=== PATIENT | female | born 1960 | race African-American/Black ===

== ENCOUNTER 2019-01-01 16:42 | Inpatient (IN) | payer OTHER ==
[2019-01-01 19:23] VITALS: BMI 22.4
--- NOTE | 2019-01-01 21:00 | HP ---
CIWA Score - Admission Criteria [facility]ASAS Guidelines: Admission for Medically Managed Detox: Requires at least one of the followin. CIWA greater than 12 2. Seizures within the past 24 hours 3. Delirium tremens within the past 24 hours 4. Hallucinations within the past 24 hours 5. Acute intervention needed for co occurring medical disorder 6. Acute intervention needed for co occurring psychiatric disorder 7. Severe withdrawal that cannot be handled at a lower level of care (continued vomiting, continued diarrhea, abnormal vital signs) requiring intravenous medication and/or fluids 8. Admitting History and Physical - Past Medical History ...LMP: 03/20/02 - Smoking History Smoking history: Never smoked Have you smoked in the past 12 months: No - Alcohol/Substance Use Hx Alcohol Use: Yes Admission ROS [facility] - [facility] Chief Complaint: seeking rehab for alcohol dependence Allergies/Adverse Reactions: Allergies Allergy/AdvReac Type Severity Reaction Status Date / Time aspirin Allergy Verified 03/09/16 17:04 carrot Allergy Verified 03/09/16 17:26 egg Allergy Verified 03/09/16 17:26 lamivudine [From Epivir] Allergy Verified 03/09/16 17:26 Penicillins Allergy Verified 03/09/16 17:04 raltegravir potassium Allergy Verified 03/09/16 17:26 [From Isentress] ritonavir [From Norvir] Allergy Verified 03/09/16 17:04 History of Present Illness: 58 y.o. female with alcoholism and crack/cocaine, cannbis dependence here for rehab. client is referred by [facility] after presenting there 3 days ago for SI which client denies such thoughts. 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 She was observed for several hours and dc. client reports daily alcohol intake but has not had any alcohol intake in 4 days. Denies withdrawal sx's, seizures. + hx/o blackouts. reports longest clean time 15 years. denies any significant clean time in the past year. lives alone, unemployed, denies legals. Client is a poor historian. selective on what health hx she wants to share Exam Limitations: No Limitations - Ebola screening Have you traveled outside of the country in the last 21 days: No (N) Have you had contact with anyone from an Ebola affected area: No Do you have a fever: No - Review of Systems Constitutional: Malaise (chronic) EENT: reports: Blurred Vision (glasses) Respiratory: reports: No Symptoms reported Cardiac: reports: No Symptoms Reported GI: reports: No Symptoms Reported : reports: No Symptoms Reported Musculoskeletal: reports: Back Pain, Joint Pain, Neck Pain Integumentary: reports: No Symptoms Reported Neuro: reports: Other (black outs) Endocrine: reports: No Symptoms Reported Hematology: reports: No Symptoms Reported Psychiatric: reports: Agitated (irritable wants to sleep took seroquel), Depressed (denies si/hi) Other Systems: Reviewed and Negative Patient History - Patient Medical History Hx Anemia: No Hx Asthma: Yes Hx Chronic Obstructive Pulmonary Disease (COPD): No Hx Cancer: Yes (hx-OVARIAN "I DO NOT TALK ABOUT" now "bone ca") Hx Cardiac Disorders: No Hx Congestive Heart Failure: No Hx Hypertension: No Hx Hypercholesterolemia: No Hx Pacemaker: No HX Cerebrovascular Accident: No Hx Seizures: No Hx Dementia: No Hx Diabetes: No Hx Gastrointestinal Disorders: No Hx Liver Disease: No Hx Genitourinary Disorders: No Hx Sexually Transmitted Disorders: No Hx Renal Disease (ESRD): No Hx Thyroid Disease: No Hx Human Immunodeficiency Virus (HIV): Yes (1982) Hx Hepatitis C: No Hx Depression: Yes Hx Suicide Attempt: Yes (20 YEARS AGO "I DO NOT WANT TO TALK ABOUT") Hx Bipolar Disorder: Yes Hx Schizophrenia: Yes Other Medical History: anger manic - Patient Surgical History Past Surgical History: Yes Hx Neurologic Surgery: No Hx Cataract Extraction: No Hx Cardiac Surgery: No Hx Lung Surgery: No Hx Breast Surgery: No Hx Breast Biopsy: No Hx Abdominal Surgery: No Hx Appendectomy: No Hx Cholecystectomy: No Hx Genitourinary Surgery: No Hx Orthopedic Surgery: No Hx Hysterectomy: Yes (2003) Anesthesia Reaction: No - PPD History Previous Implant?: Yes Documented Results: Negative w/o proof Implanted On Prior R Admission?: No PPD to be Administered?: Yes - Reproductive History Patient is a Female of Child Bearing Age (11 -55 yrs old): Yes Last Menstrual Period: 03/20/03 Patient : No - Smoking Cessation Smoking history: Never smoked Have you smoked in the past 12 months: No Hx Chewing Tobacco Use: No Initiated information on smoking cessation: No - Substance & Tx. History Hx Alcohol Use: Yes Hx Substance Use: Yes Substance Use Type: Alcohol, Cocaine, Marijuana Hx Substance Use Treatment: No - Substances abused Alcohol Substance route: Oral Frequency: Daily Amount used: 3 to 4 bottles of water. Age of first use: 7 Date of last use: 12/27/18 Crack Substance route: Inhalation Frequency: 1-3 times last 30 days Amount used: ' 3 to 4 hundred dollars. Age of first use: 25 Date of last use: 12/29/18 Marijuana/Hashish Substance route: Smoking Frequency: 1-3 times last 30 days Amount used: 3 blunts Age of first use: 7 Date of last use: 12/30/18 Admission Physical Exam [facility] - Vital Signs Vital Signs: Vital Signs - 24 hr 01/01/19 18:41 Temperature 97.2 F L Pulse Rate 70 Respiratory 16 Rate Blood Pressure 132/75 - Physical General Appearance: Yes: Irritable (patient wants to sleep took seroquel) HEENTM: Yes: EOMI, Normocephalic, Normal Voice, KRISTIN, Pharynx Normal, Other ( poor dentition) Respiratory: Yes: Chest Non-Tender, Lungs Clear, Normal Breath Sounds, No Respiratory Distress, No Accessory Muscle Use Neck: Yes: No masses,lesions,Nodules, Supple, Trachea in good position Breast: Yes: Breast Exam Deferred Cardiology: Yes: Regular Rhythm, Regular Rate, S1, S2 Abdominal: Yes: Non Tender, Soft, Surgical Scar (pt does not want to discuss type of sx) Genitourinary: Yes: Within Normal Limits Back: Yes: Normal Inspection Musculoskeletal: Yes: full range of Motion, Joint Stiffness Extremities: Yes: Other (limited rom 2/2 to complaints of pain) Neurological: Yes: Fully Oriented, Alert, Motor Strength 5/5 Integumentary: Yes: Dry, Warm Lymphatic: Yes: Within Normal Limits - Diagnostic (1) Alcohol dependence, uncomplicated Current Visit: Yes Status: Chronic (2) Cocaine dependence, uncomplicated Current Visit: Yes Status: Chronic (3) Cannabis dependence, uncomplicated Current Visit: Yes Status: Chronic (4) Asthma Current Visit: Yes Status: Chronic Qualifiers: Asthma severity: mild intermittent Asthma complication type: with status asthmaticus Comment: COMBIVENT BID (5) HIV (human immunodeficiency virus infection) Current Visit: Yes Status: Chronic (6) Neuropathy Current Visit: Yes Status: Chronic (7) Uncooperative behavior Current Visit: Yes Status: Acute Cleared for Admission [facility] - Detox or Rehab Detox Regimen/Protocol: Not Applicable Claeared for Rehab Admission: No Urine Drug Screen - Test Device Lot number: [id number] Expiration date: 09/17/20 - Control Is test valid?: Yes - Results Drug screen NEGATIVE: No Urine drug screen results: THC-Marijuana, MIGUEL-Cocaine Inpatient Rehab Admission - Rehab Decision to Admit Inpatient rehab admission?: Yes - Initial Determination Are CD services needed?: Yes Free of communicable disease: No Not in need of hospitalization: Yes - Rehab Admission Criteria Previous failed treatment: Yes Poor recovery environment: Yes Comorbidities: Yes Lacks judgement: No Patient is meeting Inpatient Rehab admission criteria:: Yes
[2019-01-01] MEDS ORDERED: guaiFENesin 200 MG/10 ML 10 ML UNIT-DOSE CUPS PO PRN (21:07)
[2019-01-01] MEDS ORDERED: LOPERAMIDE HCL 2 MG CAPSULE PO PRN (21:07)
[2019-01-01] MEDS ORDERED: MAG HYDROX/AL HYDROX/SIMETH 30 ML UNIT-DOSE CUP PO PRN (21:07)
[2019-01-01] MEDS ORDERED: MENTHOL/PHENOL 1 EACH UD MM PRN (21:07)
[2019-01-01] MEDS ORDERED: MAGNESIUM HYDROX 2400MG/30ML ORAL SUSPENSION 30 ML CUP PO PRN (21:07)
[2019-01-01] MEDS ORDERED: P-EPHED 60MG/TRIPROLIDI 2.5MG TABLET PO PRN (21:07)
[2019-01-01] MEDS ORDERED: MELATONIN 5 MG TABLETS PO PRN (22:00)
[2019-01-01] MEDS ORDERED: TUBERCULIN PPD 5 TU/0.1ML VIAL ID ONE ×2 (22:25→23:09)
[2019-01-01] MEDS: metroNIDAZOLE 250 MG TABLET PO SCH (23:01)
[2019-01-01] MEDS: metroNIDAZOLE 0.75% VAGINAL GEL 70 GM TUBE VG SCH (23:02)
[2019-01-01] MEDS: THIAMINE HCL 100 MG TABLET (FP) PO SCH (23:02)
[2019-01-01] MEDS: valACYclovir HCL 500 MG TABLET (FP) PO SCH (23:02)
[2019-01-02] MEDS ORDERED: TUBERCULIN PPD 5 TU/0.1ML VIAL ID ONE (07:03)
[2019-01-02] MEDS: ACETAMINOPHEN 325 MG TABLET (FP) PO PRN (07:04)
[2019-01-02] MEDS ORDERED: PT OWN MED DRAWER 7, Y5N ONE ×2 (08:36→23:06)
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
[2019-01-02] MEDS ORDERED: DOLUTEGRAVIR SODIUM 50 MG TABLET (NON-FORMULARY) PO SCH (10:00)
[2019-01-02] MEDS ORDERED: DARUNAVIR 800 MG/COBICISTAT 150MG TABLET PO SCH (10:00)
[2019-01-02 10:30] LABS: ALBUMIN 3.1 g/dl (3.4-5.0); BILIRUBIN,TOTAL 0.2 mg/dL (0.2-1); BLOOD UREA NITROGEN 18.7 mg/dL (7-18); CALCIUM 8.9 mg/dL (8.5-10.1); CREATININE 1.1 mg/dL (0.55-1.3); POTASSIUM 4.1 mmol/L (3.5-5.1); TOT PROT 7.5 g/dl (6.4-8.2)
[2019-01-02 10:38] LABS: HEMATOCRIT 36.2 % (32.4-45.2); HEMOGLOBIN 12.2 GM/dL (10.7-15.3); MCH 30.6 pg (25.7-33.7); MCHC 33.8 g/dl (32.0-36.0); MEAN CELL VOLUME 90.5 fl (80-96); MEAN PLT VOLUME 7.4 fl (7.5-11.1); PLATELET COUNT 180 K/MM3 (134-434); RDW 13.9 % (11.6-15.6); WHITE BLOOD COUNT 4.1 K/mm3 (4.0-10.0)
[2019-01-02] MEDS: PRENATAL VITAMINS W/ FOLIC ACID TABLET (FP) PO SCH (10:46)
[2019-01-02] MEDS: metroNIDAZOLE 250 MG TABLET PO SCH (10:46)
--- NOTE | 2019-01-02 13:20 | EKG ---
Test Reason : Blood Pressure : / mmHG Vent. Rate : 077 BPM Atrial Rate : 077 BPM P-R Int : 136 ms QRS Dur : 074 ms QT Int : 394 ms P-R-T Axes : 068 054 058 degrees QTc Int : 445 ms NORMAL SINUS RHYTHM NORMAL ECG NO PREVIOUS ECGS AVAILABLE Confirmed by JULIEN MEHTA MD ([id number]) on 01/02/2019 1:19:56 PM Referred By: DR LAMBERT Confirmed By:JULIEN MEHTA MD
--- NOTE | 2019-01-02 13:42 | PN ---
[facility] Progress Note Note: Notified by RN, Juan Peyton, that patient became agitated after meeting with counselor and stated to RN that she wanted to "cut her wrists". Sales And Production Manager evaluated patient, and she stated " the counselor came to see my and asked me to sign discharge treatment plan. I became upset because I have a lot going on and I am depressed. I made that comment because I was frustrated but I don't want to hurt myself". Patient was evaluated 3 days ago to [facility] for SI and depression. Has hx of ETOH/Crack/Cocaine/Cannabis dependence. Laboratory Tests 01/01/19 01/02/19 01/02/19 20:25 07:00 07:00 WBC 4.1 RBC 4.00 Hgb 12.2 Hct 36.2 MCV 90.5 MCH 30.6 MCHC 33.8 RDW 13.9 Plt Count 180 MPV 7.4 L Sodium 140 Potassium 4.1 Chloride 108 H Carbon Dioxide 27 Anion Gap 5 L BUN 18.7 H Creatinine 1.1 Est GFR (CKD-EPI)AfAm 63.64 Est GFR (CKD-EPI)NonAf 54.91 Random Glucose 103 Calcium 8.9 Total Bilirubin 0.2 AST 23 ALT 14 Alkaline Phosphatase 109 Total Protein 7.5 Albumin 3.1 L POC Urine HCG, Qual Negative RPR Titer 01/02/19 07:00 WBC RBC Hgb Hct MCV MCH MCHC RDW Plt Count MPV Sodium Potassium Chloride Carbon Dioxide Anion Gap BUN Creatinine Est GFR (CKD-EPI)AfAm Est GFR (CKD-EPI)NonAf Random Glucose Calcium Total Bilirubin AST ALT Alkaline Phosphatase Total Protein Albumin POC Urine HCG, Qual RPR Titer Nonreactive Vital Signs Temperature 97.9 F 01/02/19 07:21 Pulse Rate 72 01/02/19 07:21 Respiratory Rate 18 01/02/19 07:21 Blood Pressure 115/73 01/02/19 07:21 O2 Sat by Pulse Oximetry (%) PE: alert and oriented x 3 skin warm and dry +perrla eoms intact bl ext no tremors, amb ad yadira psych sad, denies SI/HI A/P: Hx of depression ETOH/Cocaine/THC dependence Patient denies SI/HI/plan, however, she has depressed affect. Although, evaluated by Roxy Rashid, butcher helper this morning, will reconsult Psychiatry.
[2019-01-02] MEDS: GABAPENTIN 400 MG CAPSULE (FP) PO SCH (17:34)
[2019-01-02] MEDS: DARUNAVIR 800 MG/COBICISTAT 150MG TABLET PO SCH (17:37)
[2019-01-02] MEDS: DOLUTEGRAVIR SODIUM 50 MG TABLET (NON-FORMULARY) PO SCH (17:37)
[2019-01-02] MEDS ORDERED: CARIPRAZINE HCL 1.5 MG PO SCH (22:00)
[2019-01-02] MEDS ORDERED: QUEtiapine FUMARATE 300 MG TABLET PO SCH (22:00)
[2019-01-02] MEDS: valACYclovir HCL 500 MG TABLET (FP) PO SCH (22:02)
[2019-01-02] MEDS: THIAMINE HCL 100 MG TABLET (FP) PO SCH (22:02)
[2019-01-02] MEDS: metroNIDAZOLE 0.75% VAGINAL GEL 70 GM TUBE VG SCH (22:02)
[2019-01-03] MEDS ORDERED: PT OWN MED DRAWER 7, Y5N ONE ×3 (06:55→18:08)
[2019-01-03] MEDS: PRENATAL VITAMINS W/ FOLIC ACID TABLET (FP) PO SCH (10:19)
--- NOTE | 2019-01-03 15:20 | DS ---
[facility] Rehab Discharge Summary - [facility] Rehab Discharge Summary Admission Date: 01/01/19 Discharge Date: 01/03/19 - History Pertinent Past History: Laboratory Last Values WBC 4.1 K/mm3 (4.0-10.0) 01/02/19 07:00 RBC 4.00 M/mm3 (3.60-5.2) 01/02/19 07:00 Hgb 12.2 GM/dL (10.7-15.3) 01/02/19 07:00 Hct 36.2 % (32.4-45.2) 01/02/19 07:00 MCV 90.5 fl (80-96) 01/02/19 07:00 MCH 30.6 pg (25.7-33.7) 01/02/19 07:00 MCHC 33.8 g/dl (32.0-36.0) 01/02/19 07:00 RDW 13.9 % (11.6-15.6) 01/02/19 07:00 Plt Count 180 K/MM3 (134-434) 01/02/19 07:00 MPV 7.4 fl (7.5-11.1) L 01/02/19 07:00 Sodium 140 mmol/L (136-145) 01/02/19 07:00 Potassium 4.1 mmol/L (3.5-5.1) 01/02/19 07:00 Chloride 108 mmol/L (98-107) H 01/02/19 07:00 Carbon Dioxide 27 mmol/L (21-32) 01/02/19 07:00 Anion Gap 5 MMOL/L (8-16) L 01/02/19 07:00 BUN 18.7 mg/dL (7-18) H 01/02/19 07:00 Creatinine 1.1 mg/dL (0.55-1.3) 01/02/19 07:00 Est GFR (CKD-EPI)AfAm 63.64 01/02/19 07:00 Est GFR (CKD-EPI)NonAf 54.91 01/02/19 07:00 Random Glucose 103 mg/dL (74-106) 01/02/19 07:00 Calcium 8.9 mg/dL (8.5-10.1) 01/02/19 07:00 Total Bilirubin 0.2 mg/dL (0.2-1) 01/02/19 07:00 AST 23 U/L (15-37) 01/02/19 07:00 ALT 14 U/L (13-61) 01/02/19 07:00 Alkaline Phosphatase 109 U/L (45-117) 01/02/19 07:00 Total Protein 7.5 g/dl (6.4-8.2) 01/02/19 07:00 Albumin 3.1 g/dl (3.4-5.0) L 01/02/19 07:00 POC Urine HCG, Qual Negative 01/01/19 20:25 RPR Titer Nonreactive (NONREACTIVE) 01/02/19 07:00 - Discharge Physical Exam Vital Signs: Vital Signs Temperature 97.1 F L 01/03/19 07:01 Pulse Rate 66 01/03/19 07:01 Respiratory Rate 18 01/03/19 07:01 Blood Pressure 157/85 01/03/19 07:01 O2 Sat by Pulse Oximetry (%) Pertinent Admission Physical Exam Findings: Laboratory Last Values WBC 4.1 K/mm3 (4.0-10.0) 01/02/19 07:00 RBC 4.00 M/mm3 (3.60-5.2) 01/02/19 07:00 Hgb 12.2 GM/dL (10.7-15.3) 01/02/19 07:00 Hct 36.2 % (32.4-45.2) 01/02/19 07:00 MCV 90.5 fl (80-96) 01/02/19 07:00 MCH 30.6 pg (25.7-33.7) 01/02/19 07:00 MCHC 33.8 g/dl (32.0-36.0) 01/02/19 07:00 RDW 13.9 % (11.6-15.6) 01/02/19 07:00 Plt Count 180 K/MM3 (134-434) 01/02/19 07:00 MPV 7.4 fl (7.5-11.1) L 01/02/19 07:00 Sodium 140 mmol/L (136-145) 01/02/19 07:00 Potassium 4.1 mmol/L (3.5-5.1) 01/02/19 07:00 Chloride 108 mmol/L (98-107) H 01/02/19 07:00 Carbon Dioxide 27 mmol/L (21-32) 01/02/19 07:00 Anion Gap 5 MMOL/L (8-16) L 01/02/19 07:00 BUN 18.7 mg/dL (7-18) H 01/02/19 07:00 Creatinine 1.1 mg/dL (0.55-1.3) 01/02/19 07:00 Est GFR (CKD-EPI)AfAm 63.64 01/02/19 07:00 Est GFR (CKD-EPI)NonAf 54.91 01/02/19 07:00 Random Glucose 103 mg/dL (74-106) 01/02/19 07:00 Calcium 8.9 mg/dL (8.5-10.1) 01/02/19 07:00 Total Bilirubin 0.2 mg/dL (0.2-1) 01/02/19 07:00 AST 23 U/L (15-37) 01/02/19 07:00 ALT 14 U/L (13-61) 01/02/19 07:00 Alkaline Phosphatase 109 U/L (45-117) 01/02/19 07:00 Total Protein 7.5 g/dl (6.4-8.2) 01/02/19 07:00 Albumin 3.1 g/dl (3.4-5.0) L 01/02/19 07:00 POC Urine HCG, Qual Negative 01/01/19 20:25 RPR Titer Nonreactive (NONREACTIVE) 01/02/19 07:00 - Medication Discharge Medications: Ambulatory Orders Dolutegravir Sodium [Tivicay] 50 mg PO DAILY 03/09/16 Albuterol Sulfate [Proair Hfa] 1 puff IN TID 01/01/19 Cariprazine HCl [Vraylar] 1.5 mg PO DAILY 01/01/19 Cariprazine HCl [Vraylar] 300 mg PO HS 01/01/19 Darunavir/Cobicistat [Prezcobix 800 mg-150 mg Tablet] 1 each PO DAILY 01/01/19 Emtricitabine/Tenofov Alafenam [Descovy 200-25 mg Tablet (Nf)] 1 tablet PO DAILY 01/01/19 Gabapentin 800 mg PO BID 01/01/19 Ondansetron [Zofran -] 4 mg PO DAILY 01/01/19 Quetiapine Fumarate [Seroquel] 300 mg PO DAILY 01/01/19 Valacyclovir HCl [Valtrex -] 1 tablet PO HS 01/01/19 metroNIDAZOLE 0.75% VAG. GEL [Metrogel 0.75% Vaginal Gel -] 1 applic VG HS 01/01 metroNIDAZOLE [Flagyl -] 500 mg PO BID 01/01/19 - Medication-Assisted Treatment (MAT) Medication-Assisted Treatment (MAT): No - Discharge Instructions Diet, activity, other medical instructions: Diet: Activity: Other medical instructions: - Diagnosis (1) Alcohol dependence, uncomplicated Current Visit: Yes Status: Chronic (2) Asthma Current Visit: Yes Status: Chronic Qualifiers: Asthma severity: mild intermittent Asthma complication type: with status asthmaticus (3) HIV (human immunodeficiency virus infection) Current Visit: Yes Status: Chronic (4) Hypertension Current Visit: No Status: Acute Qualifiers: Hypertension type: essential hypertension Qualified Code(s): I10 - Essential (primary) hypertension - AMA Did Patient Leave Against Medical Advice: No Additional Comments: Patient requested early discharge
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
[2019-01-03] MEDS: QUEtiapine FUMARATE 300 MG TABLET PO SCH (18:09)
[2019-01-03] MEDS: DARUNAVIR 800 MG/COBICISTAT 150MG TABLET PO SCH (18:09)
[2019-01-03] MEDS: DOLUTEGRAVIR SODIUM 50 MG TABLET (NON-FORMULARY) PO SCH (18:09)
[2019-01-03] MEDS: valACYclovir HCL 500 MG TABLET (FP) PO SCH (18:09)
[2019-01-03] MEDS: THIAMINE HCL 100 MG TABLET (FP) PO SCH (18:09)
[2019-01-03] MEDS: GABAPENTIN 400 MG CAPSULE (FP) PO SCH (18:10)
[2019-01-03] MEDS: metroNIDAZOLE 0.75% VAGINAL GEL 70 GM TUBE VG SCH (22:02)
[2019-01-04] MEDS: PRENATAL VITAMINS W/ FOLIC ACID TABLET (FP) PO SCH (09:48)
[2019-01-04] MEDS ORDERED: PT OWN MED DRAWER 7, Y5N ONE (17:37)
[2019-01-04] MEDS: MAGNESIUM CITRATE 300 ML BOTTLE PO PRN (17:46)
[2019-01-04] MEDS: MIRTAZAPINE 15 MG TABLET (FP) PO SCH (17:47)
[2019-01-04] MEDS: QUEtiapine FUMARATE 300 MG TABLET PO SCH (17:48)
[2019-01-04] MEDS: valACYclovir HCL 500 MG TABLET (FP) PO SCH (17:48)
[2019-01-04] MEDS: THIAMINE HCL 100 MG TABLET (FP) PO SCH (17:48)
[2019-01-04] MEDS: GABAPENTIN 400 MG CAPSULE (FP) PO SCH (17:48)
[2019-01-04] MEDS: DARUNAVIR 800 MG/COBICISTAT 150MG TABLET PO SCH (17:50)
[2019-01-04] MEDS: DOLUTEGRAVIR SODIUM 50 MG TABLET (NON-FORMULARY) PO SCH (17:50)
[2019-01-05] MEDS ORDERED: COLLOIDAL OATMEAL 1 BAR EACH TP PRN (08:44)
[2019-01-05] MEDS: PRENATAL VITAMINS W/ FOLIC ACID TABLET (FP) PO SCH (10:00)
[2019-01-05] MEDS: valACYclovir HCL 500 MG TABLET (FP) PO SCH (17:36)
[2019-01-05] MEDS: GABAPENTIN 400 MG CAPSULE (FP) PO SCH (17:36)
[2019-01-05] MEDS: MIRTAZAPINE 15 MG TABLET (FP) PO SCH (17:38)
[2019-01-05] MEDS: QUEtiapine FUMARATE 300 MG TABLET PO SCH (17:38)
[2019-01-05] MEDS: DARUNAVIR 800 MG/COBICISTAT 150MG TABLET PO SCH (17:38)
[2019-01-05] MEDS: DOLUTEGRAVIR SODIUM 50 MG TABLET (NON-FORMULARY) PO SCH (17:39)
[2019-01-05] MEDS: THIAMINE HCL 100 MG TABLET (FP) PO SCH (17:40)
--- NOTE | 2019-01-06 09:38 | PN ---
[facility] Progress Note (SOAP) Subjective: Pt c/o sorethroat and unable to eat. Reports body aches especially from knees to lower legs and neck area. Denies cough or runny nose. Reports Fatigue. Objective: 01/06/19 09:30 Vital Signs - 24 hr 01/06/19 01/06/19 00:30 03:30 Respiratory 18 18 Rate Laboratory Tests 01/01/19 01/02/19 01/02/19 20:25 07:00 07:00 WBC 4.1 RBC 4.00 Hgb 12.2 Hct 36.2 MCV 90.5 MCH 30.6 MCHC 33.8 RDW 13.9 Plt Count 180 MPV 7.4 L Sodium 140 Potassium 4.1 Chloride 108 H Carbon Dioxide 27 Anion Gap 5 L BUN 18.7 H Creatinine 1.1 Est GFR (CKD-EPI)AfAm 63.64 Est GFR (CKD-EPI)NonAf 54.91 Random Glucose 103 Calcium 8.9 Total Bilirubin 0.2 AST 23 ALT 14 Alkaline Phosphatase 109 Total Protein 7.5 Albumin 3.1 L POC Urine HCG, Qual Negative RPR Titer 01/02/19 07:00 WBC RBC Hgb Hct MCV MCH MCHC RDW Plt Count MPV Sodium Potassium Chloride Carbon Dioxide Anion Gap BUN Creatinine Est GFR (CKD-EPI)AfAm Est GFR (CKD-EPI)NonAf Random Glucose Calcium Total Bilirubin AST ALT Alkaline Phosphatase Total Protein Albumin POC Urine HCG, Qual RPR Titer Nonreactive P/E: Head:Normocephalic, Atruamatic. Neck:supple,no JVD,right side with one round grape-size bump painful to touch. Throat:slightly red, whitish coating on sides and base of tongue. cardiac:s1 s2,rrr lungs:cta,sujata. abdomen:soft,+bs,nt,nd extremities/skin:no edema,full ROM, skin intact. Assessment: 01/06/19 09:30 Throat pain swollen lymph node, right submandibular oral sree Plan: Cepastat throat lozenges Nystatin 500,000 units Q6h x 14 days Bactrim DS 1 tab po bid x 7 days
[2019-01-06] MEDS: PRENATAL VITAMINS W/ FOLIC ACID TABLET (FP) PO SCH (10:21)
[2019-01-06] MEDS ORDERED: SULFAMETHOXAZOLE/TRIMETHOPRIM 800MG/160MG D.S. TABLET PO ONE (11:28)
[2019-01-06] MEDS ORDERED: PT OWN MED DRAWER 7, Y5N ONE ×2 (12:19→16:41)
[2019-01-06] MEDS: NYSTATIN 500,000 UNITS/5 ML SUSPENSION PO SCH ×3 (12:22→23:47)
[2019-01-06] MEDS: valACYclovir HCL 500 MG TABLET (FP) PO SCH (19:13)
[2019-01-06] MEDS: GABAPENTIN 400 MG CAPSULE (FP) PO SCH (19:13)
[2019-01-06] MEDS: MIRTAZAPINE 15 MG TABLET (FP) PO SCH (19:15)
[2019-01-06] MEDS: QUEtiapine FUMARATE 300 MG TABLET PO SCH (19:15)
[2019-01-06] MEDS: DARUNAVIR 800 MG/COBICISTAT 150MG TABLET PO SCH (19:15)
[2019-01-06] MEDS: DOLUTEGRAVIR SODIUM 50 MG TABLET (NON-FORMULARY) PO SCH (19:16)
[2019-01-06] MEDS: THIAMINE HCL 100 MG TABLET (FP) PO SCH (19:16)
[2019-01-06] MEDS: SULFAMETHOXAZOLE/TRIMETHOPRIM 800MG/160MG D.S. TABLET PO SCH (21:58)
[2019-01-06 23:55] LABS: URINE APPEARANCE CLEAR; URINE BILIRUBIN NEGATIVE (NEGATIVE); URINE COLOR YELLOW; URINE GLUCOSE (UA) NEGATIVE (NEGATIVE); URINE KETONE NEGATIVE (NEGATIVE); URINE LEUK ESTERASE NEGATIVE (NEGATIVE); URINE NITRITE NEGATIVE (NEGATIVE); URINE PROTEIN NEGATIVE (NEGATIVE); URINE UROBILINOGEN 0.2 mg/dL (0.2-1.0)
[2019-01-07] MEDS: NYSTATIN 500,000 UNITS/5 ML SUSPENSION PO SCH ×3 (07:04→18:05)
[2019-01-07] MEDS: SULFAMETHOXAZOLE/TRIMETHOPRIM 800MG/160MG D.S. TABLET PO SCH ×2 (10:26→18:03)
[2019-01-07] MEDS: PRENATAL VITAMINS W/ FOLIC ACID TABLET (FP) PO SCH (10:26)
[2019-01-07] MEDS: ACETAMINOPHEN 325 MG TABLET (FP) PO PRN (10:26)
--- NOTE | 2019-01-07 12:56 | PN ---
[facility] Progress Note Note: Laboratory Tests 01/01/19 01/02/19 01/02/19 20:25 07:00 07:00 WBC 4.1 RBC 4.00 Hgb 12.2 Hct 36.2 MCV 90.5 MCH 30.6 MCHC 33.8 RDW 13.9 Plt Count 180 MPV 7.4 L Sodium 140 Potassium 4.1 Chloride 108 H Carbon Dioxide 27 Anion Gap 5 L BUN 18.7 H Creatinine 1.1 Est GFR (CKD-EPI)AfAm 63.64 Est GFR (CKD-EPI)NonAf 54.91 Random Glucose 103 Calcium 8.9 Total Bilirubin 0.2 AST 23 ALT 14 Alkaline Phosphatase 109 Total Protein 7.5 Albumin 3.1 L Urine Color Urine Appearance Urine pH Ur Specific [place] Urine Protein Urine Glucose (UA) Urine Ketones Urine Blood Urine Nitrite Urine Bilirubin Urine Urobilinogen Ur Leukocyte Esterase POC Urine HCG, Qual Negative RPR Titer 01/02/19 01/06/19 07:00 21:16 WBC RBC Hgb Hct MCV MCH MCHC RDW Plt Count MPV Sodium Potassium Chloride Carbon Dioxide Anion Gap BUN Creatinine Est GFR (CKD-EPI)AfAm Est GFR (CKD-EPI)NonAf Random Glucose Calcium Total Bilirubin AST ALT Alkaline Phosphatase Total Protein Albumin Urine Color Yellow Urine Appearance Clear Urine pH 6.0 Ur Specific [place] 1.026 Urine Protein Negative Urine Glucose (UA) Negative Urine Ketones Negative Urine Blood Negative Urine Nitrite Negative Urine Bilirubin Negative Urine Urobilinogen 0.2 Ur Leukocyte Esterase Negative POC Urine HCG, Qual RPR Titer Nonreactive UA noted WNL
[2019-01-07] MEDS ORDERED: PT OWN MED DRAWER 7, Y5N ONE (18:02)
[2019-01-07] MEDS: valACYclovir HCL 500 MG TABLET (FP) PO SCH (18:02)
[2019-01-07] MEDS: GABAPENTIN 400 MG CAPSULE (FP) PO SCH (18:02)
[2019-01-07] MEDS: THIAMINE HCL 100 MG TABLET (FP) PO SCH (18:03)
[2019-01-07] MEDS: QUEtiapine FUMARATE 300 MG TABLET PO SCH (18:04)
[2019-01-07] MEDS: DOLUTEGRAVIR SODIUM 50 MG TABLET (NON-FORMULARY) PO SCH (18:04)
[2019-01-07] MEDS: MIRTAZAPINE 15 MG TABLET (FP) PO SCH (18:04)
[2019-01-07] MEDS: DARUNAVIR 800 MG/COBICISTAT 150MG TABLET PO SCH (18:05)
[2019-01-08] MEDS: NYSTATIN 500,000 UNITS/5 ML SUSPENSION PO SCH ×5 (01:01→23:05)
[2019-01-08] MEDS: SULFAMETHOXAZOLE/TRIMETHOPRIM 800MG/160MG D.S. TABLET PO SCH ×2 (06:58→18:01)
[2019-01-08] MEDS: PRENATAL VITAMINS W/ FOLIC ACID TABLET (FP) PO SCH (09:56)
[2019-01-08] MEDS ORDERED: PT OWN MED DRAWER 7, Y5N ONE (17:50)
[2019-01-08] MEDS: GABAPENTIN 400 MG CAPSULE (FP) PO SCH (17:58)
[2019-01-08] MEDS: DARUNAVIR 800 MG/COBICISTAT 150MG TABLET PO SCH (17:59)
[2019-01-08] MEDS: MIRTAZAPINE 15 MG TABLET (FP) PO SCH (17:59)
[2019-01-08] MEDS: QUEtiapine FUMARATE 300 MG TABLET PO SCH (17:59)
[2019-01-08] MEDS: valACYclovir HCL 500 MG TABLET (FP) PO SCH (17:59)
[2019-01-08] MEDS: THIAMINE HCL 100 MG TABLET (FP) PO SCH (17:59)
[2019-01-08] MEDS: DOLUTEGRAVIR SODIUM 50 MG TABLET (NON-FORMULARY) PO SCH (18:00)
[2019-01-09] MEDS: SULFAMETHOXAZOLE/TRIMETHOPRIM 800MG/160MG D.S. TABLET PO SCH ×2 (07:06→18:03)
[2019-01-09] MEDS: NYSTATIN 500,000 UNITS/5 ML SUSPENSION PO SCH ×4 (07:07→23:47)
[2019-01-09] MEDS: PRENATAL VITAMINS W/ FOLIC ACID TABLET (FP) PO SCH (10:28)
--- NOTE | 2019-01-09 11:20 | PN ---
Psychiatric Progress Note Vital Signs: Vital Signs Period Temp Pulse Resp BP Sys/Perdomo Pulse Ox Last 24 Hr 97.7 F 81-88 17-18 110-118/70-72 Date of Session: 01/09/19 Chief Complaint:: " I just want to talk." HPI: Patient admitted to for alcohol and opiate dependence. Patient offers no specific complaints. ROS: Patient is coherent, calm, cooperative, alert + oriented X3. Current Medications: Active Medications Generic Name Dose Route Start Last Admin Trade Name Freq PRN Reason Stop Dose Admin Acetaminophen 650 mg 01/01/19 21:07 01/07/19 10:26 Tylenol - PO 650 mg Q4H PRN Administration FEVER Al Hydroxide/Mg Hydroxide 30 ml 01/01/19 21:07 Mylanta Oral Suspension - PO Q6H PRN DYSPEPSIA Colloidal Oatmeal 1 applic 01/05/19 08:44 01/06/19 12:24 Aveeno Soap - TP 1 bar DAILY PRN Administration HYGEINE Eucalyptus/Menthol/Phenol/Sorbitol 1 each 01/01/19 21:07 01/06/19 07:54 Cepastat Lozenge - MM 1 each Q4H PRN Administration SORE THROAT Gabapentin 800 mg 01/02/19 18:00 01/08/19 17:58 Neurontin - PO 800 mg DAILY@1800 NOELLE Administration Guaifenesin 10 ml 01/01/19 21:07 Robitussin - PO Q6H PRN COUGH Loperamide HCl 4 mg 01/01/19 21:07 Imodium - PO Q6H PRN DIARRHEA Magnesium Citrate 300 ml 01/01/19 21:07 01/04/19 17:46 Citroma - PO 300 ml Q48H PRN Administration CONSTIPATION Magnesium Hydroxide 30 ml 01/01/19 21:07 Milk Of Magnesia - PO DAILY PRN CONSTIPATION Melatonin 5 mg 01/01/19 22:00 Melatonin PO HS PRN INSOMNIA Mirtazapine 7.5 mg 01/04/19 18:00 01/08/19 17:59 Remeron - PO 7.5 mg HS@1800 NOELLE Administration Nystatin 500,000 units 01/06/19 12:00 01/09/19 07:07 Nystatin Oral Suspension - PO Not Given Q6HPO NOELLE Multivit/Folic Acid/Iron 1 tab 01/02/19 10:00 01/09/19 10:28 Vitamins (Sjr) - PO 1 tab DAILY NOELLE Administration Pseudoephedrine/Triprolidine 1 combo 01/01/19 21:07 Actifed - PO TID PRN NASAL CONGESTION Quetiapine Fumarate 300 mg 01/03/19 18:00 01/08/19 17:59 Seroquel - PO 300 mg DAILY@1800 NOELLE Administration Thiamine HCl 100 mg 01/03/19 18:00 01/08/19 17:59 Vitamin B1 - PO 100 mg DAILY@1800 NOELLE Administration Trimethoprim/Sulfamethoxazole 1 each 01/07/19 18:00 01/09/19 07:06 Bactrim Ds - PO 01/14/19 17:59 1 each BID@0600,1800 NOELLE Administration Valacyclovir HCl 1,000 mg 01/03/19 18:00 01/08/19 17:59 Valtrex - PO 1,000 mg DAILY@1800 NOELLE Administration Medication(s) Change(s): No. Current Side Effect: No Lab tests ordered: No Lab tests reviewed: Yes Provider note:: Patient much more calmer and cooperative then previous interactions. Patient reports feeling much better overall. Reports feeling less labile and more stable. States that the groups on the unit are helping her. States that she has been writing letters to loved ones who had and ex- as she finds it therapeutic. Patient apologetic about past outburst on the unit. Patient satisifed with Seroquel 300mg + Remeron 7.5mg HS. She reports sleeping well. Reports no longer interested in resuming Vraylar. Patient denies thoughts or urges to hurtself. Patient to continue current medication regiman. Total face to face time:: 25 Mental Status Exam - Mental Status Exam Alert and Oriented to: Time, Place, Person Cognitive Function: Good Patient Appearance: Well Groomed Mood: Euthymic Affect: Mood Congruent Patient Behavior: Appropriate, Cooperative Speech Pattern: Clear, Appropriate Voice Loudness: Normal Thought Process: Intact, Goal Oriented Thought Disorder: Not Present Hallucinations: Denies Suicidal Ideation: Denies Homicidal Ideation: Denies Insight/Judgement: Poor Sleep: Fair Appetite: Fair Muscle strength/Tone: Normal Gait/Station: Normal Psychiatric Treatment Plan - Problem List (1) Bipolar disorder Current Visit: Yes (2) Alcohol dependence, uncomplicated Current Visit: Yes Comment: . (3) Cannabis dependence, uncomplicated Current Visit: Yes Comment: . (4) Cocaine dependence, uncomplicated Current Visit: Yes Comment: . (5) Substance induced mood disorder Current Visit: Yes Comment: . (6) Substance-induced sleep disorder Current Visit: Yes
[2019-01-09] MEDS ORDERED: PT OWN MED DRAWER 7, Y5N ONE (17:40)
[2019-01-09] MEDS: valACYclovir HCL 500 MG TABLET (FP) PO SCH (18:03)
[2019-01-09] MEDS: GABAPENTIN 400 MG CAPSULE (FP) PO SCH (18:03)
[2019-01-09] MEDS: DARUNAVIR 800 MG/COBICISTAT 150MG TABLET PO SCH (18:05)
[2019-01-09] MEDS: DOLUTEGRAVIR SODIUM 50 MG TABLET (NON-FORMULARY) PO SCH (18:06)
[2019-01-09] MEDS: MIRTAZAPINE 15 MG TABLET (FP) PO SCH (18:06)
[2019-01-09] MEDS: QUEtiapine FUMARATE 300 MG TABLET PO SCH (18:06)
[2019-01-09] MEDS: THIAMINE HCL 100 MG TABLET (FP) PO SCH (18:06)
[2019-01-10] MEDS: SULFAMETHOXAZOLE/TRIMETHOPRIM 800MG/160MG D.S. TABLET PO SCH ×2 (07:04→19:27)
[2019-01-10] MEDS: ACETAMINOPHEN 325 MG TABLET (FP) PO PRN (07:04)
[2019-01-10] MEDS: NYSTATIN 500,000 UNITS/5 ML SUSPENSION PO SCH ×3 (07:05→19:31)
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
[2019-01-10] MEDS: PRENATAL VITAMINS W/ FOLIC ACID TABLET (FP) PO SCH (10:22)
[2019-01-10] MEDS ORDERED: ALBUTEROL SO4 8 GM HFA INHALER IH PRN (11:12)
--- NOTE | 2019-01-10 11:22 | PN ---
S Progress Note Note: patient has history of asthma,on albuterol inhaler,expose to strong sense cleaning solution in the room Vital Signs Temperature 97.5 F L 01/10/19 07:25 Pulse Rate 73 01/10/19 07:25 Respiratory Rate 18 01/10/19 07:25 Blood Pressure 117/76 01/10/19 07:25 O2 Sat by Pulse Oximetry (%) pulse oximetry 100% stated using albuterol in haler before coming to hospital also burping treatment albuterol inhaler 2 puff q 4 hrs prn encourage fluid pepcid 10 mgs po daily close monitoring
[2019-01-10] MEDS: FAMOTIDINE 10 MG TABLET PO SCH (11:35)
[2019-01-10] MEDS ORDERED: PT OWN MED DRAWER 7, Y5N ONE (17:41)
[2019-01-10] MEDS: GABAPENTIN 400 MG CAPSULE (FP) PO SCH (19:27)
[2019-01-10] MEDS: valACYclovir HCL 500 MG TABLET (FP) PO SCH (19:27)
[2019-01-10] MEDS: THIAMINE HCL 100 MG TABLET (FP) PO SCH (19:29)
[2019-01-10] MEDS: DOLUTEGRAVIR SODIUM 50 MG TABLET (NON-FORMULARY) PO SCH (19:30)
[2019-01-10] MEDS: DARUNAVIR 800 MG/COBICISTAT 150MG TABLET PO SCH (19:30)
[2019-01-10] MEDS: QUEtiapine FUMARATE 300 MG TABLET PO SCH (19:30)
[2019-01-10] MEDS: MIRTAZAPINE 15 MG TABLET (FP) PO SCH (19:30)
[2019-01-11] MEDS: NYSTATIN 500,000 UNITS/5 ML SUSPENSION PO SCH ×4 (00:15→21:18)
[2019-01-11] MEDS: SULFAMETHOXAZOLE/TRIMETHOPRIM 800MG/160MG D.S. TABLET PO SCH ×2 (06:47→21:16)
[2019-01-11] MEDS: PRENATAL VITAMINS W/ FOLIC ACID TABLET (FP) PO SCH (10:25)
[2019-01-11] MEDS: FAMOTIDINE 10 MG TABLET PO SCH (10:25)
[2019-01-11] MEDS: MAGNESIUM CITRATE 300 ML BOTTLE PO PRN (13:56)
[2019-01-11] MEDS: valACYclovir HCL 500 MG TABLET (FP) PO SCH (21:16)
[2019-01-11] MEDS: GABAPENTIN 400 MG CAPSULE (FP) PO SCH (21:17)
[2019-01-11] MEDS: MIRTAZAPINE 15 MG TABLET (FP) PO SCH (21:18)
[2019-01-11] MEDS: DOLUTEGRAVIR SODIUM 50 MG TABLET (NON-FORMULARY) PO SCH (21:18)
[2019-01-11] MEDS: QUEtiapine FUMARATE 300 MG TABLET PO SCH (21:18)
[2019-01-11] MEDS: DARUNAVIR 800 MG/COBICISTAT 150MG TABLET PO SCH (21:18)
[2019-01-11] MEDS: THIAMINE HCL 100 MG TABLET (FP) PO SCH (21:18)
[2019-01-12] MEDS: NYSTATIN 500,000 UNITS/5 ML SUSPENSION PO SCH ×5 (00:30→23:13)
[2019-01-12] MEDS: SULFAMETHOXAZOLE/TRIMETHOPRIM 800MG/160MG D.S. TABLET PO SCH ×2 (07:35→18:05)
[2019-01-12] MEDS: FAMOTIDINE 10 MG TABLET PO SCH (10:25)
[2019-01-12] MEDS: PRENATAL VITAMINS W/ FOLIC ACID TABLET (FP) PO SCH (10:25)
[2019-01-12] MEDS: MIRTAZAPINE 15 MG TABLET (FP) PO SCH (18:04)
[2019-01-12] MEDS ORDERED: PT OWN MED DRAWER 7, Y5N ONE (18:04)
[2019-01-12] MEDS: valACYclovir HCL 500 MG TABLET (FP) PO SCH (18:05)
[2019-01-12] MEDS: QUEtiapine FUMARATE 300 MG TABLET PO SCH (18:05)
[2019-01-12] MEDS: GABAPENTIN 400 MG CAPSULE (FP) PO SCH (18:05)
[2019-01-12] MEDS: THIAMINE HCL 100 MG TABLET (FP) PO SCH (18:05)
[2019-01-12] MEDS: DARUNAVIR 800 MG/COBICISTAT 150MG TABLET PO SCH (18:06)
[2019-01-12] MEDS: DOLUTEGRAVIR SODIUM 50 MG TABLET (NON-FORMULARY) PO SCH (18:06)
[2019-01-13] MEDS: SULFAMETHOXAZOLE/TRIMETHOPRIM 800MG/160MG D.S. TABLET PO SCH ×2 (06:05→18:07)
[2019-01-13] MEDS: NYSTATIN 500,000 UNITS/5 ML SUSPENSION PO SCH ×3 (06:06→18:17)
[2019-01-13] MEDS: FAMOTIDINE 10 MG TABLET PO SCH (10:55)
[2019-01-13] MEDS: PRENATAL VITAMINS W/ FOLIC ACID TABLET (FP) PO SCH (10:55)
[2019-01-13] MEDS ORDERED: PT OWN MED DRAWER 7, Y5N ONE (18:01)
[2019-01-13] MEDS: GABAPENTIN 400 MG CAPSULE (FP) PO SCH (18:07)
[2019-01-13] MEDS: valACYclovir HCL 500 MG TABLET (FP) PO SCH (18:07)
[2019-01-13] MEDS: DOLUTEGRAVIR SODIUM 50 MG TABLET (NON-FORMULARY) PO SCH (18:08)
[2019-01-13] MEDS: QUEtiapine FUMARATE 300 MG TABLET PO SCH (18:08)
[2019-01-13] MEDS: THIAMINE HCL 100 MG TABLET (FP) PO SCH (18:09)
[2019-01-13] MEDS: MIRTAZAPINE 15 MG TABLET (FP) PO SCH (18:09)
[2019-01-13] MEDS: DARUNAVIR 800 MG/COBICISTAT 150MG TABLET PO SCH (18:11)
[2019-01-14] MEDS: NYSTATIN 500,000 UNITS/5 ML SUSPENSION PO SCH ×4 (00:07→18:28)
[2019-01-14] MEDS: ACETAMINOPHEN 325 MG TABLET (FP) PO PRN ×2 (06:11→10:30)
[2019-01-14] MEDS: SULFAMETHOXAZOLE/TRIMETHOPRIM 800MG/160MG D.S. TABLET PO SCH (06:12)
--- NOTE | 2019-01-14 07:06 | PN ---
[facility] Progress Note Note: S/P REPORTED FALL. CLIENT REPORTS FALLING OUT OF BED AND HITTING HER HEAD AGAINST THE CORNER OF BEDSIDE TABLE STRIKING LEFT SIDE OF HEAD POINTING TO OUTER CORNER OF LEFT BROW. DENIES ANY OTHER INJURIES. PT C/O HEADACHE AND TENDERNESS TO AREA. DENIES VISUAL DISTURBANCE, N/V/DIZZINESS, SOB, C.P. A/OX 3 NAD, AMBUALTING ON UNIT W/O DIFFICULTY HEAD- NCAT, TENDERNESS ON PALPATION TO LEFT BROW. EYES- RIGHT PERRLA, CLIENT UNCOOPERATIVE WITH LEFT EYE STATES LIGHT HURST HER EYE. SKIN- INTACT EXTREMITIES- FROM W/O LIMITATION Vital Signs Temperature 97.2 F L 01/14/19 06:20 Pulse Rate 77 01/14/19 06:20 Respiratory Rate 16 01/14/19 06:20 Blood Pressure 100/67 01/14/19 06:20 O2 Sat by Pulse Oximetry (%) Laboratory Tests 01/01/19 01/02/19 01/02/19 20:25 07:00 07:00 WBC 4.1 RBC 4.00 Hgb 12.2 Hct 36.2 MCV 90.5 MCH 30.6 MCHC 33.8 RDW 13.9 Plt Count 180 MPV 7.4 L Sodium 140 Potassium 4.1 Chloride 108 H Carbon Dioxide 27 Anion Gap 5 L BUN 18.7 H Creatinine 1.1 Est GFR (CKD-EPI)AfAm 63.64 Est GFR (CKD-EPI)NonAf 54.91 Random Glucose 103 Calcium 8.9 Total Bilirubin 0.2 AST 23 ALT 14 Alkaline Phosphatase 109 Total Protein 7.5 Albumin 3.1 L Urine Color Urine Appearance Urine pH Ur Specific [place] Urine Protein Urine Glucose (UA) Urine Ketones Urine Blood Urine Nitrite Urine Bilirubin Urine Urobilinogen Ur Leukocyte Esterase POC Urine HCG, Qual Negative RPR Titer 01/02/19 01/06/19 07:00 21:16 WBC RBC Hgb Hct MCV MCH MCHC RDW Plt Count MPV Sodium Potassium Chloride Carbon Dioxide Anion Gap BUN Creatinine Est GFR (CKD-EPI)AfAm Est GFR (CKD-EPI)NonAf Random Glucose Calcium Total Bilirubin AST ALT Alkaline Phosphatase Total Protein Albumin Urine Color Yellow Urine Appearance Clear Urine pH 6.0 Ur Specific [place] 1.026 Urine Protein Negative Urine Glucose (UA) Negative Urine Ketones Negative Urine Blood Negative Urine Nitrite Negative Urine Bilirubin Negative Urine Urobilinogen 0.2 Ur Leukocyte Esterase Negative POC Urine HCG, Qual RPR Titer Nonreactive S/P UNWITNESSED FALL P- TRANSFER TO [facility] FOR CT OF HEAD PATIENT ENDORSED TO DR. TIFFANY CAPONE PROTOCOL 1 CLIENT IS A 58 Y.O FEMALE ADMITTED ON 01/01/2019 TO REHAB FOR ALCOHOL, COCAINE , CANNABIS DEPENDENCE. PMHX REPORTED- ASTHMA, HIV, NEUROPATHY. SHE ALSO REPORTED HX/O OVARIAN CA NOW WITH BONE METS ON ADMISSION BUT DID NOT WANT TO ELABORATE.
--- NOTE | 2019-01-14 10:29 | PN ---
[facility] Progress Note (SOAP) Subjective: Called by Ms. Bella the nurse because the patient hit her head on the TV shelf when getting up from a chair. Witnessed by the counselor. Patient had a previous fall this AM out of bed. At that time she refused to go to the emergency room when EMS arrived. Denies dizziness. PMHX:CLIENT IS A 58 Y.O FEMALE ADMITTED ON 01/01/2019 TO REHAB FOR ALCOHOL, COCAINE, CANNABIS DEPENDENCE. ASTHMA, HIV, NEUROPATHY. SHE ALSO REPORTED HX/O OVARIAN CA NOW WITH BONE METS. Objective: P/E General: no apparent distress HEENTM: Eyes: PERRLA-bilaterally, normocephalic Lungs: clear Heart: s1 s2 Abd: +BS MSK: full weight bearing, steady gait, full ROM. Neuro: CN 2-12 intact, Muscle strength 5/5 bilaterally 01/14/19 10:25 Vital Signs (72 hours) 01/12/19 01/12/19 01/12/19 00:30 03:30 07:11 Temperature 98.3 F Pulse Rate 78 Respiratory 16 16 18 Rate Blood Pressure 102/67 01/13/19 01/13/19 01/13/19 00:30 03:30 07:19 Temperature 98.0 F Pulse Rate 79 Respiratory 18 18 18 Rate Blood Pressure 109/71 01/14/19 01/14/19 01/14/19 00:30 03:30 05:30 Temperature 97.2 F L Pulse Rate 77 Respiratory 16 16 16 Rate Blood Pressure 100/67 01/14/19 01/14/19 01/14/19 06:20 07:30 07:39 Temperature 97.2 F L 97.4 F L 97.4 F L Pulse Rate 77 71 71 Respiratory 16 18 18 Rate Blood Pressure 100/67 108/66 108/66 01/14/19 10:34 Assessment: Evaluation of sequelae from bumping head. 01/14/19 10:27 Plan: Neurologically intact. Advised patient that considering her fall this AM and now bumping head, it would be advisable for her to go to the ER to be evaluated. Possible consequences of fall and bump were reviewed with the patient. Ms. Vincent refused to go to the ER and stated she understood the consequences, but believed that her fall out of bed was the result of "drug" dreams and bumping her head was the result of not paying attention when she stood up and that no injuries were incurred. Again, she was advised that evaluation in the ER was the best course and she refused. Patient placed on protocol 1. Receptive to this decision. Will continue to monitor. Informed patient that if she changed her mind, to inform the RN.
[2019-01-14] MEDS: FAMOTIDINE 10 MG TABLET PO SCH (10:30)
[2019-01-14] MEDS: PRENATAL VITAMINS W/ FOLIC ACID TABLET (FP) PO SCH (10:30)
--- NOTE | 2019-01-14 14:50 | PN ---
[facility] Progress Note (SOAP) Subjective: Re-evaluated patient. See previous note, pt hit head getting up out of seat. At that time she refused a CT-scan. She fell before that, between 6-7am, She was seen by the night provider and at that time refused transport to the ER. She has been placed on Fall Protocol 1. Patient reports that she continues to have a headache and has taken tylenol. Reports headache when she transitions for lying down to sitting. Objective: P/E General: No apparent distress HEENTM: PERRLA Lungs: clear Heart: s1 s2 Neuro: Fully oriented, CN2-12 intact, No neurological deficits noted MSK: Full weight bearing, steady gait. Vital Signs (72 hours) 01/12/19 01/12/19 01/12/19 00:30 03:30 07:11 Temperature 98.3 F Pulse Rate 78 Respiratory 16 16 18 Rate Blood Pressure 102/67 01/13/19 01/13/19 01/13/19 00:30 03:30 07:19 Temperature 98.0 F Pulse Rate 79 Respiratory 18 18 18 Rate Blood Pressure 109/71 01/14/19 01/14/19 01/14/19 00:30 03:30 05:30 Temperature 97.2 F L Pulse Rate 77 Respiratory 16 16 16 Rate Blood Pressure 100/67 01/14/19 01/14/19 01/14/19 06:20 07:30 07:39 Temperature 97.2 F L 97.4 F L 97.4 F L Pulse Rate 77 71 71 Respiratory 16 18 18 Rate Blood Pressure 100/67 108/66 108/66 01/14/19 01/14/19 01/14/19 09:30 09:50 11:30 Temperature 97.8 F 98 F 97.6 F Pulse Rate 83 76 76 Respiratory 18 18 20 Rate Blood Pressure 98/61 115/71 116/74 01/14/19 01/14/19 01/14/19 11:43 13:28 13:30 Temperature 97.6 F 98.5 F 98.5 F Pulse Rate 76 80 80 Respiratory 20 18 18 Rate Blood Pressure 116/74 118/69 118/69 01/14/19 14:47 01/14/19 14:47 Assessment: s/p head injury 01/14/19 14:49 Plan: Patient was encouraged to accept transport to the ER for further evaluation and CT-scan. She continues to refuse. Reiterated possible complications and need for further evaluation. Patient continues to refuse. Advised patient to sit up slowly and then wait a few minutes until she stands. Will continue to monitor.
[2019-01-14] MEDS: MIRTAZAPINE 15 MG TABLET (FP) PO SCH (18:27)
--- NOTE | 2019-01-14 18:27 | PN ---
Psychiatric Progress Note Vital Signs: Vital Signs Period Temp Pulse Resp BP Sys/Perdomo Pulse Ox Last 24 Hr 97.2 F-98.5 F 71-86 16-20 98-118/61-74 Date of Session: 01/14/19 Chief Complaint:: Argument with peers HPI: Patient admitted to for alcohol and opiate dependence. Upon arrival on unit patient was in the living room speaking to security due to altercation with her peers. ROS: Patient is coherent, alert + oriented X3. Patient slighlty irritable and frustrated. Current Medications: Active Medications Generic Name Dose Route Start Last Admin Trade Name Freq PRN Reason Stop Dose Admin Acetaminophen 650 mg 01/01/19 21:07 01/14/19 10:30 Tylenol - PO 650 mg Q4H PRN Administration FEVER Al Hydroxide/Mg Hydroxide 30 ml 01/01/19 21:07 Mylanta Oral Suspension - PO Q6H PRN DYSPEPSIA Albuterol Sulfate 2 puff 01/10/19 11:12 01/10/19 11:33 Ventolin Hfa Inhaler - IH 2 puff Q4H PRN Administration SHORT OF BREATH/WHEEZING Colloidal Oatmeal 1 applic 01/05/19 08:44 01/06/19 12:24 Aveeno Soap - TP 1 bar DAILY PRN Administration HYGEINE Eucalyptus/Menthol/Phenol/Sorbitol 1 each 01/01/19 21:07 01/06/19 07:54 Cepastat Lozenge - MM 1 each Q4H PRN Administration SORE THROAT Famotidine 10 mg 01/10/19 11:30 01/14/19 10:30 Acid Manager Of Housekeeping PO 10 mg DAILY NOELLE Administration Gabapentin 800 mg 01/02/19 18:00 01/13/19 18:07 Neurontin - PO 800 mg DAILY@1800 NOELLE Administration Guaifenesin 10 ml 01/01/19 21:07 Robitussin - PO Q6H PRN COUGH Loperamide HCl 4 mg 01/01/19 21:07 Imodium - PO Q6H PRN DIARRHEA Magnesium Citrate 300 ml 01/01/19 21:07 01/11/19 13:56 Citroma - PO 300 ml Q48H PRN Administration CONSTIPATION Magnesium Hydroxide 30 ml 01/01/19 21:07 Milk Of Magnesia - PO DAILY PRN CONSTIPATION Melatonin 5 mg 01/01/19 22:00 Melatonin PO HS PRN INSOMNIA Mirtazapine 7.5 mg 01/04/19 18:00 01/13/19 18:09 Remeron - PO 7.5 mg HS@1800 NOELLE Administration Nystatin 500,000 units 01/06/19 12:00 01/14/19 12:10 Nystatin Oral Suspension - PO Not Given Q6HPO NOELLE Multivit/Folic Acid/Iron 1 tab 01/02/19 10:00 01/14/19 10:30 Vitamins (Sjr) - PO 1 tab DAILY NOELLE Administration Pseudoephedrine/Triprolidine 1 combo 01/01/19 21:07 Actifed - PO TID PRN NASAL CONGESTION Quetiapine Fumarate 300 mg 01/03/19 18:00 01/13/19 18:08 Seroquel - PO 300 mg DAILY@1800 NOELLE Administration Thiamine HCl 100 mg 01/03/19 18:00 01/13/19 18:09 Vitamin B1 - PO 100 mg DAILY@1800 NOELLE Administration Valacyclovir HCl 1,000 mg 01/03/19 18:00 01/13/19 18:07 Valtrex - PO 1,000 mg DAILY@1800 NOELLE Administration Medication(s) Change(s): Yes. Will add Vistaril 50mg Q6H for irritability. Current Side Effect: No Lab tests ordered: No Lab tests reviewed: Yes Provider note:: Patient upset on unit. Equipment [employer] informed that patient was involved in a verbal altercation with her peers. Security on unit observed de escalating the situation. [employer] able to speak to patient in private office. Patient calm , cooperative but mildly irritable about situation that occured although is in good control while speaking to remote mortgage underwriter. As per patient the verbal altercation was caused by rumors on the unit. States there is alot of negative talk and many of the things that are said is not true. States that she wants to remain in rehab and earn her certificate. Patient scheduled for discharge on Saturday. Patient has been compliant with her medications. States that she has no desire to continue to have conversations with the peers that are causing issues. Reports motivation to continue and complete rehab on Saturday. Denies thoughts or urges to hurt self or others. Patient made aware that vistaril 50mg q6h will be ordered for anxiety. Recommendation: If verbal altercations continue with other peers it may be beneficial to transfer patient to another unit to avoid further conflict. Total face to face time:: 30 Mental Status Exam - Mental Status Exam Alert and Oriented to: Time, Place, Person Cognitive Function: Good Patient Appearance: Well Groomed Mood: Irritable Affect: Appropriate Patient Behavior: Cooperative Speech Pattern: Appropriate Voice Loudness: Normal Thought Process: Goal Oriented Thought Disorder: Not Present Hallucinations: Denies Suicidal Ideation: Denies Homicidal Ideation: Denies Insight/Judgement: Poor Sleep: Fair Appetite: Fair Muscle strength/Tone: Normal Gait/Station: Normal Psychiatric Treatment Plan - Problem List (1) Bipolar disorder Current Visit: Yes (2) Alcohol dependence, uncomplicated Current Visit: Yes Comment: . (3) Cannabis dependence, uncomplicated Current Visit: Yes Comment: . (4) Cocaine dependence, uncomplicated Current Visit: Yes Comment: . (5) Substance induced mood disorder Current Visit: Yes Comment: . (6) Substance-induced sleep disorder Current Visit: Yes
[2019-01-14] MEDS ORDERED: hydrOXYzine PAMOATE 50 MG CAPSULE (FP) PO PRN (18:28)
[2019-01-14] MEDS: QUEtiapine FUMARATE 300 MG TABLET PO SCH (18:28)
[2019-01-14] MEDS: GABAPENTIN 400 MG CAPSULE (FP) PO SCH (18:28)
[2019-01-14] MEDS: valACYclovir HCL 500 MG TABLET (FP) PO SCH (18:28)
[2019-01-14] MEDS: DARUNAVIR 800 MG/COBICISTAT 150MG TABLET PO SCH (18:29)
[2019-01-14] MEDS: DOLUTEGRAVIR SODIUM 50 MG TABLET (NON-FORMULARY) PO SCH (18:30)
[2019-01-14] MEDS: THIAMINE HCL 100 MG TABLET (FP) PO SCH (18:33)
[2019-01-15] MEDS: NYSTATIN 500,000 UNITS/5 ML SUSPENSION PO SCH ×5 (00:22→23:50)
--- NOTE | 2019-01-15 09:09 | DS ---
[facility] Re[facility] Discharge Summary - [facility] Discharge Summary Admission Date: 01/01/19 Discharge Date: 01/15/19 - History Present History: Alcohol dependence, Cannabis dependence, Cocaine dependence Pertinent Past History: 58 y.o. female with alcoholism and crack/cocaine, cannbis dependence here for rehab. client reports daily alcohol intake. Denies withdrawal sx's, seizures. + hx/o blackouts. reports longest clean time 15 years. denies any significant clean time in the past year. lives alone, unemployed, denies legals. - Discharge Physical Exam Vital Signs: Vital Signs Temperature 98.1 F 01/15/19 05:30 Pulse Rate 75 01/15/19 05:30 Respiratory Rate 16 01/15/19 05:30 Blood Pressure 113/76 01/15/19 05:30 O2 Sat by Pulse Oximetry (%) Pertinent Admission Physical Exam Findings: Physical General Appearance: No apparent distress HEENTM: KRISTIN, poor dentition Respiratory: Lungs Clear, Neck: Supple, Trachea in good position Cardiology: S1, S2 Abdominal: Non Tender, Soft,+BS Musculoskeletal: full range of Motion, Joint Stiffness Neurological: CN 2-12 intact, Motor Strength 5/5 Lymphatic: NO palpable lymph nodes. - Treatment Discharge Condition: Outpatient referral accepted (Will return to [facility]. medically stable for discharge.) Hospital Course: Patient was adherent to her treatment plan and medication regimen. She had 1:1 meetings with her counselor and was seen by psychiatric service. She had two verbal altercations with other patients during her stay in rehab. In addition, she had an unwitnessed fall and refused transfer to the ER for further evaluation. Protocol 1 was implemented. The same day, she hit her head on a shelf. Again, she was strongly advised to go to the ER for further evaluation and she refused potential sequelae of the hit to the head were reviewed with the patient and she continued to refuse. Protocol 1 was continued and subsequent physical assessments indicated that there appeared to be no residual effects. - Medication Discharge Medications: Ambulatory Orders Dolutegravir Sodium [Tivicay] 50 mg PO DAILY 03/09/16 Albuterol Sulfate [Proair Hfa] 1 puff IN TID 01/01/19 Cariprazine HCl [Vraylar] 1.5 mg PO DAILY 01/01/19 Cariprazine HCl [Vraylar] 300 mg PO HS 01/01/19 Darunavir/Cobicistat [Prezcobix 800 mg-150 mg Tablet] 1 each PO DAILY 01/01/19 Emtricitabine/Tenofov Alafenam [Descovy 200-25 mg Tablet (Nf)] 1 tablet PO DAILY 01/01/19 Gabapentin 800 mg PO BID 01/01/19 Ondansetron [Zofran -] 4 mg PO DAILY 01/01/19 Quetiapine Fumarate [Seroquel] 300 mg PO DAILY 01/01/19 Valacyclovir HCl [Valtrex -] 1 tablet PO HS 01/01/19 metroNIDAZOLE 0.75% VAG. GEL [Metrogel 0.75% Vaginal Gel -] 1 applic VG HS 01/01 metroNIDAZOLE [Flagyl -] 500 mg PO BID 01/01/19 - Medication-Assisted Treatment (MAT) Medication-Assisted Treatment (MAT): No - Discharge Instructions Diet, activity, other medical instructions: Diet: as tolerated Activity: as tolerated Other medical instructions: Please follow up with aftercare referral. - Diagnosis (1) Alcohol dependence, uncomplicated Current Visit: Yes Status: Chronic (2) Cannabis dependence, uncomplicated Current Visit: Yes Status: Chronic (3) Cocaine dependence, uncomplicated Current Visit: Yes Status: Chronic - Follow-up Referral Minutes to complete discharge: 20 - AMA Did Patient Leave Against Medical Advice: No Additional Comments: At patient request, her HIV medications were not prescribed or transmitted to her pharmacy. The patient stated that she had refills at the pharmacy and did not need them. Only her psychiatric medications were transmitted.
[2019-01-15] MEDS: PRENATAL VITAMINS W/ FOLIC ACID TABLET (FP) PO SCH (09:35)
[2019-01-15] MEDS: FAMOTIDINE 10 MG TABLET PO SCH (09:35)
--- NOTE | 2019-01-15 11:57 | PN ---
[facility] Progress Note Note: Patient is scheduled for discharge tomorrow. Scripts for 30 days supply of medications(Remeron 7.5 mg/hs, Seroquel 300 mg/hs) will be electronically transmitted to [facility] at [address] [place] [address]
[2019-01-15] MEDS ORDERED: PT OWN MED DRAWER 7, Y5N ONE ×2 (17:32→18:53)
[2019-01-15] MEDS: QUEtiapine FUMARATE 300 MG TABLET PO SCH (18:43)
[2019-01-15] MEDS: valACYclovir HCL 500 MG TABLET (FP) PO SCH (18:43)
[2019-01-15] MEDS: THIAMINE HCL 100 MG TABLET (FP) PO SCH (18:44)
[2019-01-15] MEDS: GABAPENTIN 400 MG CAPSULE (FP) PO SCH (18:44)
[2019-01-15] MEDS: MIRTAZAPINE 15 MG TABLET (FP) PO SCH (18:44)
[2019-01-15] MEDS: DARUNAVIR 800 MG/COBICISTAT 150MG TABLET PO SCH (18:44)
[2019-01-15] MEDS: DOLUTEGRAVIR SODIUM 50 MG TABLET (NON-FORMULARY) PO SCH (18:45)
[2019-01-16] MEDS: NYSTATIN 500,000 UNITS/5 ML SUSPENSION PO SCH (06:50)
[2019-01-16 06:51] VITALS: BP 121/74; PULSE 76; TEMP 97.2
== END 2019-01-16 09:15 | disposition home or self-care (01) | DRG 772 ==
LOC: YASAS 16:42 → Y3E 21:15
PROVIDERS: ADMIT Neuromusculoskeletal Medicine & OMM; ATTEND Neuromusculoskeletal Medicine & OMM
PROC: HZ2ZZZZ Detoxification Services for Substance Abuse Treatment (ICD-10-PCS; 2019-01-01)
PROC: HZ42ZZZ Group Counseling for Substance Abuse Treatment, Cognitive-Behavioral (ICD-10-PCS; principal; 2019-01-03)
DX: F10.20 Alcohol dependence, uncomplicated (principal); F14.20 Cocaine dependence, uncomplicated; F12.20 Cannabis dependence, uncomplicated; F19.282 Other psychoactive substance dependence with psychoactive substance-induced sleep disorder; F19.24 Other psychoactive substance dependence with psychoactive substance-induced mood disorder; F25.0 Schizoaffective disorder, bipolar type; F31.9 Bipolar disorder, unspecified; F63.9 Impulse disorder, unspecified; F91.9 Conduct disorder, unspecified; Z21 Asymptomatic human immunodeficiency virus [HIV] infection status; G47.00 Insomnia, unspecified; I10 Essential (primary) hypertension; B37.0 Candidal stomatitis; G62.9 Polyneuropathy, unspecified; J02.9 Acute pharyngitis, unspecified; S09.8XXA Other specified injuries of head, initial encounter; R51 Headache; W06.XXXA Fall from bed, initial encounter; W22.09XA Striking against other stationary object, initial encounter; Y93.89 Activity, other specified; Y92.230 Patient room in hospital as the place of occurrence of the external cause; Y99.8 Other external cause status; Z85.43 Personal history of malignant neoplasm of ovary; Z88.6 Allergy status to analgesic agent; Z88.0 Allergy status to penicillin; Z91.012 Allergy to eggs; Z91.018 Allergy to other foods
CPT/HCPCS: 36415; 80053; 81003; 81025; 85027; 86593; 93005; 93010